=== PATIENT | female | born 1945 | race American Indian/Alaskan Native ===

== ENCOUNTER 2018-05-09 13:04 | Emergency (ER) | payer MEDICARE, OTHER ==
[2018-05-09 13:17] VITALS: BP 163/98
[2018-05-09] MEDS ORDERED: ZOFRAN IV ONE (13:26)
[2018-05-09] MEDS ORDERED: MORPHINE IV ONE (13:26)
[2018-05-09] MEDS ORDERED: MORPHINE ONE (13:32)
[2018-05-09 14:06] LABS: Hematocrit 43.1 % (30.3-42.9); Hemoglobin 14.2 gm/dl (10.1-14.3); Mean Corpuscular HGB Conc 33 % (30-34); Mean Corpuscular Volume 91 fl (79-97); Platelet Count 490 K/mm3 (140-440); Red Blood Count 4.76 M/mm3 (3.65-5.03); Red Cell Distribution Width 13.5 % (13.2-15.2)
[2018-05-09 14:07] LABS: Alanine Aminotransferase 15 units/L (7-56); Albumin 4.4 g/dL (3.9-5); BUN/Creatinine Ratio 16; Blood Urea Nitrogen 14 mg/dL (7-17); Calcium 9.5 mg/dL (8.4-10.2); Hemolysis Index 17
[2018-05-09 14:40] LABS: Anisocytosis 1+; Basophils % (Manual) 0 % (0.0-1.8); Ovalocytes 1+; Platelet Estimate Consistent w Auto; Poikilocytosis 1+; Total Cells Counted 100
[2018-05-09 15:21] LABS: Bilirubin,Urine NEG (Negative); Blood,Urine NEG (Negative); Color,Urine Straw (Yellow); Protein,Urine <15 mg/dL mg/dL (Negative); Urobilinogen,Urine < 2.0 mg/dL (<2.0)
--- NOTE | 2018-05-09 15:47 | Anesthesia Day of Surgery ---
Anesthesia Day of Surgery - Day of Surgery Patient Examined: Yes Patient H&P Reviewed: Yes Patient is NPO: No (food at 1030am, iced tea at 130pm)
--- NOTE | 2018-05-09 15:50 | Emergency Department Report ---
ED General Adult HPI - General Chief complaint: Abdominal Pain Stated complaint: KIDNEY STONE/PAIN Time Seen by Provider: 05/09/18 13:25 Source: patient Mode of arrival: Ambulatory Limitations: No Limitations - History of Present Illness Initial comments: Patient presents to the emergency department to complaint left flank pain. Patient states that she was diagnosed with a kidney stone Sunday and had a procedure to blast the kidney stones at that time. Patient is concerned that the procedure was not successful and was to be evaluated for her left flank pain. Patient endorses nausea but denies vomiting. Patient has chest pain, shortness breath, or abdominal pain. -: Sudden Location: abdomen Radiation: non-radiation Severity scale (0 -10): 9 Consistency: constant Improves with: none Worsens with: none Associated Symptoms: denies other symptoms Treatments Prior to Arrival: none - Related Data Allergies Allergy/AdvReac Type Severity Reaction Status Date / Time No Known Allergies Allergy Verified 05/09/18 13:17 ED Review of Systems ROS: Stated complaint: KIDNEY STONE/PAIN Other details as noted in HPI Comment: All other systems reviewed and negative Constitutional: denies: chills, fever Eyes: denies: eye pain, eye discharge, vision change ENT: denies: ear pain, throat pain Respiratory: denies: cough, shortness of breath, wheezing Cardiovascular: denies: chest pain, palpitations Endocrine: no symptoms reported Gastrointestinal: denies: abdominal pain, nausea, diarrhea Genitourinary: denies: urgency, dysuria, discharge Musculoskeletal: denies: back pain, joint swelling, arthralgia Skin: denies: rash, lesions Neurological: denies: headache, weakness, paresthesias Psychiatric: denies: anxiety, depression Hematological/Lymphatic: denies: easy bleeding, easy bruising ED Past Medical Hx - Past Medical History Previous Medical History?: Yes Hx Hypertension: Yes - Surgical History Past Surgical History?: Yes Hx Appendectomy: Yes (1956) Additional Surgical History: tonsillectomy, x2, dental implants - Social History Smoking Status: Never Smoker Substance Use Type: Alcohol ED Physical Exam - General Limitations: No Limitations General appearance: alert, in no apparent distress - Head Head exam: Present: atraumatic, normocephalic - Eye Eye exam: Present: normal appearance, PERRL, EOMI - ENT ENT exam: Present: mucous membranes moist - Neck Neck exam: Present: normal inspection - Respiratory Respiratory exam: Present: normal lung sounds bilaterally. Absent: respiratory distress, wheezes, rales - Cardiovascular Cardiovascular Exam: Present: regular rate, normal rhythm. Absent: systolic murmur, diastolic murmur, rubs, gallop - GI/Abdominal GI/Abdominal exam: Present: soft, normal bowel sounds. Absent: distended, tenderness - Extremities Exam Extremities exam: Present: normal inspection - Back Exam Back exam: Present: normal inspection - Neurological Exam Neurological exam: Present: alert, oriented X3, CN II-XII intact. Absent: motor sensory deficit - Psychiatric Psychiatric exam: Present: normal affect, normal mood - Skin Skin exam: Present: warm, dry, intact, normal color. Absent: rash ED Course Vital Signs 05/09/18 13:13 Temperature 97.8 F Pulse Rate 85 Respiratory 16 Rate Blood Pressure 163/98 O2 Sat by Pulse 98 Oximetry ED Medical Decision Making - Lab Data Result diagrams: 05/09/18 13:36 05/09/18 13:36 Lab Results 05/09/18 05/09/18 05/09/18 Range/Units 13:36 13:36 15:05 WBC 5.9 (4.5-11.0) K/mm3 RBC 4.76 (3.65-5.03) M/mm3 Hgb 14.2 (10.1-14.3) gm/dl Hct 43.1 H (30.3-42.9) % MCV 91 (79-97) fl MCH 30 (28-32) pg MCHC 33 (30-34) % RDW 13.5 (13.2-15.2) % Plt Count 490 H (140-440) K/mm3 Add Manual Diff Complete Total Counted 100 Seg Neuts % (Manual) 43.0 (40.0-70.0) % Band Neutrophils % 0 % Lymphocytes % (Manual) 24.0 (13.4-35.0) % Reactive Lymphs % (Man) 0 % Monocytes % (Manual) 9.0 H (0.0-7.3) % Eosinophils % (Manual) 24.0 H (0.0-4.3) % Basophils % (Manual) 0 (0.0-1.8) % Metamyelocytes % 0 % Myelocytes % 0 % Promyelocytes % 0 % Blast Cells % 0 % Nucleated RBC % Not Reportable Seg Neutrophils # Man 2.5 (1.8-7.7) K/mm3 Band Neutrophils # 0.0 K/mm3 Lymphocytes # (Manual) 1.4 (1.2-5.4) K/mm3 Abs React Lymphs (Man) 0.0 K/mm3 Monocytes # (Manual) 0.5 (0.0-0.8) K/mm3 Eosinophils # (Manual) 1.4 H (0.0-0.4) K/mm3 Basophils # (Manual) 0.0 (0.0-0.1) K/mm3 Metamyelocytes # 0.0 K/mm3 Myelocytes # 0.0 K/mm3 Promyelocytes # 0.0 K/mm3 Blast Cells # 0.0 K/mm3 WBC Morphology Not Reportable Hypersegmented Neuts Not Reportable Hyposegmented Neuts Not Reportable Hypogranular Neuts Not Reportable Smudge Cells Not Reportable Toxic Granulation Not Reportable Toxic Vacuolation Not Reportable Dohle Bodies Not Reportable Pelger-Huet Anomaly Not Reportable Jessica Rods Not Reportable Platelet Estimate Consistent w auto Clumped Platelets Not Reportable Plt Clumps, EDTA Not Reportable Large Platelets Not Reportable Giant Platelets Not Reportable Platelet Satelliting Not Reportable Plt Morphology Comment Not Reportable RBC Morphology Not Reportable Dimorphic RBCs Not Reportable Polychromasia Not Reportable Hypochromasia Not Reportable Poikilocytosis 1+ Anisocytosis 1+ Microcytosis Not Reportable Macrocytosis Not Reportable Spherocytes Not Reportable Pappenheimer Bodies Not Reportable Sickle Cells Not Reportable Target Cells Not Reportable Tear Drop Cells Not Reportable Ovalocytes 1+ Helmet Cells Not Reportable [place] Bodies Not Reportable [place] Rings Not Reportable [place] Cells Not Reportable Bite Cells Not Reportable Crenated Cell Not Reportable Elliptocytes Not Reportable Acanthocytes (Spur) Not Reportable Rouleaux Not Reportable Hemoglobin C Crystals Not Reportable Schistocytes Not Reportable Malaria parasites Not Reportable Eddie Bodies Not Reportable Hem Pathologist Commnt No Sodium 140 (137-145) mmol/L Potassium 3.9 (3.6-5.0) mmol/L Chloride 104.0 (98-107) mmol/L Carbon Dioxide 22 (22-30) mmol/L Anion Gap 18 mmol/L BUN 14 (7-17) mg/dL Creatinine 0.9 (0.7-1.2) mg/dL Estimated GFR > 60 ml/min BUN/Creatinine Ratio 16 % Glucose 87 (65-100) mg/dL Calcium 9.5 (8.4-10.2) mg/dL Total Bilirubin 0.30 (0.1-1.2) mg/dL AST 21 (5-40) units/L ALT 15 (7-56) units/L Alkaline Phosphatase 119 (35-129) units/L Total Protein 7.1 (6.3-8.2) g/dL Albumin 4.4 (3.9-5) g/dL Albumin/Globulin Ratio 1.6 % Urine Color Straw (Yellow) Urine Turbidity Clear (Clear) Urine pH 6.0 (5.0-7.0) Ur Specific [place] 1.008 (1.003-1.030) Urine Protein <15 mg/dl (Negative) mg/dL Urine Glucose (UA) Neg (Negative) mg/dL Urine Ketones Neg (Negative) mg/dL Urine Blood Neg (Negative) Urine Nitrite Neg (Negative) Urine Bilirubin Neg (Negative) Urine Urobilinogen < 2.0 (<2.0) mg/dL Ur Leukocyte Esterase Neg (Negative) Urine WBC (Auto) 1.0 (0.0-6.0) /HPF Urine RBC (Auto) 1.0 (0.0-6.0) /HPF U Epithel Cells (Auto) < 1.0 (0-13.0) /HPF - Radiology Data Radiology results: [place] [address] Cat Scan Report Signed Patient: SILVIA FARAH MR#: [id number] : 1945 Acct:[id number] Age/Sex: 73 / F ADM Date: 05/09/18 Loc: ED Attending Dr: Ordering Physician: BARAK FREEMAN MD Date of Service: 05/09/18 Procedure(s): CT abdomen pelvis wo con Accession Number(s): [id number] cc: BARAK FREEMAN MD FINAL REPORT EXAM: CT ABDOMEN PELVIS WO CON HISTORY: flank pain TECHNIQUE: Axial helical imaging through the abdomen and pelvis with sagittal and coronal reformatted images obtained. Comparison: None FINDINGS: The lung bases are without infiltrate, pneumothorax or pleural fluid collection. The liver, spleen, pancreas and adrenal glands are unremarkable. The gallbladder is moderately distended and unremarkable. There is moderate to marked left hydronephrosis. There appear to be 2 obstructing stones in the proximal left ureter that are adjacent to each other. The larger stone measures approximately 5 millimeters by 3.7 millimeters by. The smaller stone measures approximately 2.8 millimeters by 2.7 millimeters 6.4 millimeters by 4.7 millimeters There are additional stones in the renal pelvis bilaterally. The bowel is normal caliber. There is a cdwx-xp-rgsoukzx amount of stool throughout the colon. There is no evidence of pneumoperitoneum or free fluid. The abdominal aorta is normal caliber. There is no evidence of pathologic intra-abdominal adenopathy by CT size criteria. The urinary bladder is moderately distended and unremarkable in appearance. The bony structures are notable for spondylitic change of the lumbar spine with the appearance of multiple level canal stenosis. IMPRESSION: 1. Moderate to marked left hydronephrosis with what appears to be 2 obstructing stones in the proximal left ureter. 2. Additional stones in the renal pelvis bilaterally. 3. Cula-gy-rbdtoubn amount of stool throughout the colon. 4. Spondylitic change lumbar spine. Transcribed By: ED Dictated By: IFRAH ARTIS MD Electronically Authenticated By: IFRAH ARTIS MD Signed Date/Time: 05/09/18 1628 DD/ 1630 TD/TT: 05/09/18 1630 - Medical Decision Making Discussed results with the patient Spoke with Dr. Peter and patient can follow up as an outpatient Stress the plan of care with the patient who agreed and understood the plan Critical care attestation.: If time is entered above; I have spent that time in minutes in the direct care of this critically ill patient, excluding procedure time. ED Disposition Clinical Impression: Nephrolithiasis Disposition: -01 TO HOME OR SELFCARE Is pt being admited?: No Does the pt Need Aspirin: No Condition: Stable Instructions: Abdominal Pain (ED) Additional Instructions: return if worse Referrals: YANDEL PETER MD [Staff Physician] - 3-5 Days Time of Disposition: 17:14
--- NOTE | 2018-05-09 15:52 | Anesthesia Consultation ---
Anesthesia Consult and Med Hx Date of service: 05/09/18 - Airway Anesthetic Teeth Evaluation: Dentures ROM Head & Neck: Adequate Mental/Hyoid Distance: Adequate Mallampati Class: Class II Intubation Access Assessment: Probably Good - Pre-Operative Health Status ASA Pre-Surgery Classification: ASA3 Proposed Anesthetic Plan: General - Pulmonary Hx Smoking: Yes (former smoker) Hx Pneumonia: Yes (x4) - Cardiovascular System Hx Hypertension: Yes (high cholesterol) - Endocrine Hx Hypothyroidism: Yes (karen's)
--- NOTE | 2018-05-09 16:28 | Cat Scan Report ---
FINAL REPORT EXAM: CT ABDOMEN PELVIS WO CON HISTORY: flank pain TECHNIQUE: Axial helical imaging through the abdomen and pelvis with sagittal and coronal reformatte d images obtained. Comparison: None FINDINGS: The lung bases are without infiltrate, pneumothorax or pleural fluid collection. The liver, spleen, pancreas and adrenal glands are unremarkable. The gallbladder is moderately distended and unremarkable. There is moderate to marked left hydronephrosis. There appear to be 2 obstructing stones in the proxi mal left ureter that are adjacent to each other. The larger stone measures approximately 5 millimeter s by 3.7 millimeters by. The smaller stone measures approximately 2.8 millimeters by 2.7 millimeters 6.4 millimeters by 4.7 millimeters There are additional stones in the renal pelvis bilaterally. The bowel is normal caliber. There is a becw-qb-xtelbhte amount of stool throughout the colon. There is no evidence of pneumoperitoneum or free fluid. The abdominal aorta is normal caliber. There is no evidence of pathologic intra-abdominal adenopathy by CT size criteria. The urinary bladder is moderately distended and unremarkable in appearance. The bony structures are notable for spondylitic change of the lumbar spine with the appearance of mul tiple level canal stenosis. IMPRESSION: 1. Moderate to marked left hydronephrosis with what appears to be 2 obstructing stones in the proxima l left ureter. 2. Additional stones in the renal pelvis bilaterally. 3. Czsq-cq-rkgrzxgi amount of stool throughout the colon. 4. Spondylitic change lumbar spine.
--- NOTE | 2018-05-09 17:30 | Progress Note ---
Assessment and Plan sig hydro silent inc risk for renal deterioration Subjective Date of service: 05/09/18 Principal diagnosis: hydro Objective - Constitutional Vitals: Vital Signs - 12hr 05/09/18 13:13 Temperature 97.8 F Pulse Rate 85 Respiratory 16 Rate Blood Pressure 163/98 O2 Sat by Pulse 98 Oximetry General appearance: Present: no acute distress - Neck Neck: supple - Respiratory Respiratory effort: normal Extremities: no ischemia - Labs CBC & Chem 7: 05/09/18 13:36 05/09/18 13:36 Labs: Abnormal lab results 05/09/18 Range/Units 13:36 Hct 43.1 H (30.3-42.9) % Plt Count 490 H (140-440) K/mm3 Monocytes % (Manual) 9.0 H (0.0-7.3) % Eosinophils % (Manual) 24.0 H (0.0-4.3) % Eosinophils # (Manual) 1.4 H (0.0-0.4) K/mm3 Medications & Allergies - Medications Allergies/Adverse Reactions: Allergies No Known Allergies Allergy (Verified 05/09/18 13:17)
[2018-05-09] MEDS ORDERED: DIPRIVAN 10 MG/ML IV ONE (17:32)
[2018-05-09] MEDS ORDERED: DILAUDID ONE (17:32)
[2018-05-09] MEDS ORDERED: XYLOCAINE MPF 2% ONE (17:33)
== END 2018-05-09 17:50 | disposition home or self-care (01) ==
LOC: ED 13:04
DX: N20.0 Calculus of kidney (principal); I10 Essential (primary) hypertension
CPT/HCPCS: 36415; 74176; 80053; 81001; 85007; 85025; 87086; 99284; J1170; J2704; J2270; J2405